=== PATIENT | male | born 1975 | race Two or more races ===

== ENCOUNTER 2018-12-28 21:25 | Emergency (ER) | payer SELFPAY ==
[2018-12-28 22:26] LABS: ABS Basophils 0.1 10^3/ul (0-0.2); ABS Eosinophils 0.4 10^3/ul (0-0.6); ABS Lymphocytes 3.8 10^3/ul (1.0-4.8); ABS Monocytes 0.5 10^3/ul (0-0.8); ABS Neutrophils 3.8 10^3/ul (1.5-7.7); Eosinophil % 4.9 %; Hematocrit 44 % (42-52); Hemoglobin 14.9 g/dL (14.0-18.0); Lymphocyte % 43.7 %; Mean Corpuscular HGB Conc 34 g/dL (31-36); Mean Corpuscular Hemoglobin 31 pg (27-31); Mean Corpuscular Volume 92 fL (80-94); Mean Platelet Volume 7.1 fL (7.4-10.4); Nucleated Red Blood Cells % 0.1; Platelet Count 325 10^3/uL (150-450); Red Blood Count 4.78 10^6 /uL (4.18-5.48); Red Cell Distribution Width 14 % (10-15); White Blood Count 8.6 10^3/uL (3.5-10.8)
[2018-12-28 22:42] LABS: ALT 16 U/L (7-52); AST 20 U/L (13-39); Albumin 4.4 g/dL (3.2-5.2); Albumin/Globulin Ratio 1.8 (1-3); Alkaline Phosphatase 46 U/L (34-104); Anion Gap 11 mmol/L (2-11); Blood Urea Nitrogen 12 mg/dL (6-24); CO2 Carbon Dioxide 20 mmol/L (22-32); Calcium 9.1 mg/dL (8.6-10.3); Chloride 108 mmol/L (101-111); EGFR African American 128.3 (>60); Globulin 2.4 g/dL (2-4); Glucose 75 mg/dL (70-100); Potassium 3.9 mmol/L (3.5-5.0); Sodium 139 mmol/L (135-145); Total Protein 6.8 g/dL (6.4-8.9)
[2018-12-28 22:44] LABS: Urine Benzodiazepine Screen None Detected (None Detect); Urine Opiates Screen None Detected (None Detect)
[2018-12-28 22:46] LABS: Urine Appearance Clear; Urine Bacteria Absent (Absent); Urine Bilirubin Negative (Negative); Urine Blood 2+ (Negative); Urine Color Yellow; Urine Glucose Negative (Negative); Urine Ketones Negative (Negative); Urine Nitrite Negative (Negative); Urine Protein Negative (Negative); Urine Red Blood Cell 1+(3-5/hpf) (Absent); Urine Specific Gravity 1.009 (1.010-1.030); Urine Urobilinogen Negative (Negative); Urine White Blood Cell Absent (Absent)
[2018-12-28 22:47] LABS: Acetaminophen < 15 mcg/mL; Alcohol 70 mg/dL (<10); Salicylate < 2.50 mg/dL (<30)
[2018-12-28 22:56] LABS: TSH (Thyroid Stimulating Horm) 1.72 mcIU/mL (0.34-5.60)
[2018-12-29 01:37] VITALS: BP 131/80
[2018-12-29] MEDS ORDERED: Haloperidol TAB* 5 MG PO ONE (01:55)
--- NOTE | 2018-12-29 03:13 | ED ---
Psychiatric Complaint - HPI Summary HPI Summary: Patient is a 43 y/o M w/ PMHx of schizophrenia who presents to ED with complaints of auditory hallucinations. He reports that he is from [place] and is visiting the [facility]. Patient reports that [place] has been in the [place] for a couple of months and had brought a large amount of his medication with him. However, he ran out of his medication four days ago and has been experiencing Sx since. He states that he hears voices telling him to "do as we say". He states that the voices will laugh at him and make jokes at him. Patient denies SI/HI. Patient claims that the medication he is on can only be found in [place]. On triage, pain is denied, nothing is noted to aggravate/alleviate Sx. Home medications and allergies are reviewed. - History Of Current Complaint Chief Complaint: EDMentalHealth Time Seen by Provider: 12/28/18 21:39 Hx Obtained From: Patient Onset/Duration: Lasting Days - 4, Still Present Timing: Days - 4 Severity Currently: None Aggravating Factor(s): Other - ran out of meds Alleviating Factor(s): Nothing Associated Signs And Symptoms: Positive: Hallucinating - auditory Has Suicidal: Denies: Thoughts Has Homicidal: Denies: Thoughts - Allergies/Home Medications Allergies/Adverse Reactions: Allergies Allergy/AdvReac Type Severity Reaction Status Date / Time No Known Allergies Allergy Verified 12/28/18 21:31 PMH/Surg Hx/FS Hx/Imm Hx Sensory History: Denies: Hx Legally Blind, Hx Deafness Opthamlomology History: Denies: Hx Legally Blind EENT History: Denies: Hx Deafness Psychiatric History: Reports: Hx Schizophrenia Denies: Hx Eating Disorder, Hx of Violent Episodes Against Others Infectious Disease History: No Infectious Disease History: Denies: Traveled Outside the [place] in Last 30 Days - Family History Known Family History: Positive: Other - no FMHx of schizophrenia - Social History Alcohol Use: None Substance Use Type: Reports: None Smoking Status (MU): Heavy Every Day Tobacco Smoker Review of Systems Negative: Fever - on vitals, temp is 99.6 F Psychological: Other - positive - auditory hallucinations; negative - SI/HI All Other Systems Reviewed And Are Negative: Yes Physical Exam - Summary Physical Exam Summary: VITAL SIGNS: Reviewed. GENERAL: Patient is a well-developed and nourished male who is lying comfortable in the stretcher. Patient is not in any acute respiratory distress. HEAD AND FACE: No signs of trauma. No ecchymosis, hematomas or skull depressions. No sinus tenderness. EYES: PERRLA, EOMI x 2, No injected conjunctiva, no nystagmus. EARS: Hearing grossly intact. Ear canals and tympanic membranes are within normal limits. MOUTH: Oropharynx within normal limits. NECK: Supple, trachea is midline, no adenopathy, no JVD, no carotid bruit, no c- spine tenderness, neck with full ROM CHEST: Symmetric, no tenderness at palpation LUNGS: Clear to auscultation bilaterally. No wheezing or crackles. CVS: Regular rate and rhythm, S1 and S2 present, no murmurs or gallops appreciated. ABDOMEN: Soft, non-tender. No signs of distention. No rebound no guarding, and no masses palpated. Bowel sounds are normal. EXTREMITIES: FROM in all major joints, no edema, no cyanosis or clubbing. NEURO: Alert and oriented x 3. No acute neurological deficits. Speech is normal and follows commands. SKIN: Dry and warm Triage Information Reviewed: Yes Vital Signs On Initial Exam: Initial Vitals Temp Pulse Resp BP Pulse Ox 99.6 F 96 20 105/78 99 12/28/18 21:25 12/28/18 21:25 12/28/18 21:25 12/28/18 21:25 12/28/18 21:25 Vital Signs Reviewed: Yes Diagnostics - Vital Signs Vital Signs Temp Pulse Resp BP Pulse Ox 12/29/18 03:00 98.4 F 82 16 131/80 97 12/29/18 01:36 98.4 F 82 16 131/80 97 12/28/18 21:25 99.6 F 96 20 105/78 99 - Laboratory Lab Results: Lab Results 12/28/18 12/28/18 12/28/18 Range/Units 21:46 21:46 22:14 WBC 8.6 (3.5-10.8) 10^3/uL RBC 4.78 (4.18-5.48) 10^6 /uL Hgb 14.9 (14.0-18.0) g/dL Hct 44 (42-52) % MCV 92 (80-94) fL MCH 31 (27-31) pg MCHC 34 (31-36) g/dL RDW 14 (10-15) % Plt Count 325 (150-450) 10^3/uL MPV 7.1 L (7.4-10.4) fL Neut % (Auto) 44.0 % Lymph % (Auto) 43.7 % [place] % (Auto) 6.1 % Eos % (Auto) 4.9 % Baso % (Auto) 1.3 % Absolute Neuts (auto) 3.8 (1.5-7.7) 10^3/ul Absolute Lymphs (auto) 3.8 (1.0-4.8) 10^3/ul Absolute Monos (auto) 0.5 (0-0.8) 10^3/ul Absolute Eos (auto) 0.4 (0-0.6) 10^3/ul Absolute Basos (auto) 0.1 (0-0.2) 10^3/ul Absolute Nucleated RBC 0.0 10^3/ul Nucleated RBC % 0.1 Sodium (135-145) mmol/L Potassium (3.5-5.0) mmol/L Chloride (101-111) mmol/L Carbon Dioxide (22-32) mmol/L Anion Gap (2-11) mmol/L BUN (6-24) mg/dL Creatinine (0.67-1.17) mg/dL Est GFR ( Amer) (>60) Est GFR (Non-Af Amer) (>60) BUN/Creatinine Ratio (8-20) Glucose (70-100) mg/dL Calcium (8.6-10.3) mg/dL Total Bilirubin (0.2-1.0) mg/dL AST (13-39) U/L ALT (7-52) U/L Alkaline Phosphatase (34-104) U/L Total Protein (6.4-8.9) g/dL Albumin (3.2-5.2) g/dL Globulin (2-4) g/dL Albumin/Globulin Ratio (1-3) TSH (0.34-5.60) mcIU/mL Urine Color Yellow Urine Appearance Clear Urine pH 6.0 (5-9) Ur Specific [place] 1.009 L (1.010-1.030) Urine Protein Negative (Negative) Urine Ketones Negative (Negative) Urine Blood 2+ A (Negative) Urine Nitrate Negative (Negative) Urine Bilirubin Negative (Negative) Urine Urobilinogen Negative (Negative) Ur Leukocyte Esterase Negative (Negative) Urine WBC (Auto) Absent (Absent) Urine RBC (Auto) 1+(3-5/hpf) A (Absent) Urine Bacteria Absent (Absent) Urine Glucose Negative (Negative) Salicylates (<30) mg/dL Urine Opiates Screen None detected (None Detect) Acetaminophen mcg/mL Ur Barbiturates Screen None detected (None Detect) Ur Phencyclidine Scrn None detected (None Detect) Ur Amphetamines Screen None detected (None Detect) U Benzodiazepines Scrn None detected (None Detect) Urine Cocaine Screen Presumptive positive A (None Detect) U Cannabinoids Screen None detected (None Detect) Serum Alcohol (<10) mg/dL 12/28/18 Range/Units 22:14 WBC (3.5-10.8) 10^3/uL RBC (4.18-5.48) 10^6 /uL Hgb (14.0-18.0) g/dL Hct (42-52) % MCV (80-94) fL MCH (27-31) pg MCHC (31-36) g/dL RDW (10-15) % Plt Count (150-450) 10^3/uL MPV (7.4-10.4) fL Neut % (Auto) % Lymph % (Auto) % [place] % (Auto) % Eos % (Auto) % Baso % (Auto) % Absolute Neuts (auto) (1.5-7.7) 10^3/ul Absolute Lymphs (auto) (1.0-4.8) 10^3/ul Absolute Monos (auto) (0-0.8) 10^3/ul Absolute Eos (auto) (0-0.6) 10^3/ul Absolute Basos (auto) (0-0.2) 10^3/ul Absolute Nucleated RBC 10^3/ul Nucleated RBC % Sodium 139 (135-145) mmol/L Potassium 3.9 (3.5-5.0) mmol/L Chloride 108 (101-111) mmol/L Carbon Dioxide 20 L (22-32) mmol/L Anion Gap 11 (2-11) mmol/L BUN 12 (6-24) mg/dL Creatinine 0.80 (0.67-1.17) mg/dL Est GFR ( Amer) 128.3 (>60) Est GFR (Non-Af Amer) 106.0 (>60) BUN/Creatinine Ratio 15.0 (8-20) Glucose 75 (70-100) mg/dL Calcium 9.1 (8.6-10.3) mg/dL Total Bilirubin 0.40 (0.2-1.0) mg/dL AST 20 (13-39) U/L ALT 16 (7-52) U/L Alkaline Phosphatase 46 (34-104) U/L Total Protein 6.8 (6.4-8.9) g/dL Albumin 4.4 (3.2-5.2) g/dL Globulin 2.4 (2-4) g/dL Albumin/Globulin Ratio 1.8 (1-3) TSH 1.72 (0.34-5.60) mcIU/mL Urine Color Urine Appearance Urine pH (5-9) Ur Specific [place] (1.010-1.030) Urine Protein (Negative) Urine Ketones (Negative) Urine Blood (Negative) Urine Nitrate (Negative) Urine Bilirubin (Negative) Urine Urobilinogen (Negative) Ur Leukocyte Esterase (Negative) Urine WBC (Auto) (Absent) Urine RBC (Auto) (Absent) Urine Bacteria (Absent) Urine Glucose (Negative) Salicylates < 2.50 (<30) mg/dL Urine Opiates Screen (None Detect) Acetaminophen < 15 mcg/mL Ur Barbiturates Screen (None Detect) Ur Phencyclidine Scrn (None Detect) Ur Amphetamines Screen (None Detect) U Benzodiazepines Scrn (None Detect) Urine Cocaine Screen (None Detect) U Cannabinoids Screen (None Detect) Serum Alcohol 70 H (<10) mg/dL Result Diagrams: 12/28/18 22:14 12/28/18 22:14 Lab Statement: Any lab studies that have been ordered have been reviewed, and results considered in the medical decision making process. Re-Evaluation - Re-Evaluation First Eval Re-Evaluation Time: 23:15 Comment: Patient was medically cleared for MHE. Course/Dx - Course Course Of Treatment: Patient is a 43 y/o M w/ PMHx of schizophrenia who presents to ED with complaints of auditory hallucinations. He reports that he is from [place] and is [place] the [place]. Patient reports that he has been in the [place] for a couple of [place] and had brought a large amount of his medication with him. However, he ran out of his medication four days ago and has been experiencing Sx since. He states that he hears voices telling him to "do as we say". He states that the voices will laugh at him and make jokes at him. Patient denies SI/HI. Patient claims that the medication he is on can only be found in [place]. Labs showd MPV 7.1, carbon dioxide 20. UA showed 2+ blood, 1+ RBC. Urine tox showed presumptive positive cocaine. Serum alcohol 70. Patient was medically cleared for MHE. 0153 - Patient's case had been reviewed by Dr. Pillai, patient will be discharged. Patient was given Haldol 5 mg in ED and prescription for Haldol. - Differential Dx/Clinical Impression Provider Diagnosis: Schizophrenia - Physician Notifications Discussed Care Of Patient With: Marzena Pillai Time Discussed With Above Provider: 01:53 Instructed by Provider To: Other - 0153 - Patient's case had been reviewed by Dr. Pillai, patient will be discharged. Patient was given Haldol 5 mg in ED and prescription for Haldol. Discharge - Sign-Out/Discharge Documenting (check all that apply): Patient Departure - discharge Patient Received Moderate/Deep Sedation with Procedure: No - Discharge Plan Condition: Stable Disposition: HOME Prescriptions: Haloperidol TAB* [Haldol TAB*] 5 mg PO BID #60 tab Referrals: No Primary Care Phys,NOPCP [Primary Care Provider] - - Attestation Statements Document Initiated by Scribe: Yes Documenting Scribe: NYDIA OLSON Provider For Whom [place] is Documenting (Include Credential): BRIELLE GUSTAFSON MD Scribe Attestation: NYDIA Morris, scribed for BRIELLE GUSTAFSON MD on 12/29/18 at 0319. Status of Scribe Document: Ready
== END 2018-12-29 03:00 | disposition home or self-care (01) ==
LOC: ED 21:25
DX: F20.9 Schizophrenia, unspecified (principal); F17.200 Nicotine dependence, unspecified, uncomplicated
CPT/HCPCS: 36415; 80053; 80307; 80320; 80329; 81003; 81015; 84443; 85025; 99283; A9270-GY; G0480

== ENCOUNTER 2019-02-15 22:27 | Inpatient (IN) | payer MEDICAID ==
--- NOTE | 2019-02-15 23:03 | ED ---
Psychiatric Complaint - HPI Summary HPI Summary: This patient is a 43 year old M presenting to [facility] with a chief complaint of suicidal ideation since he ran out of medication. Pt was taking Solian back home in [place]. [place] the [place] get [place]. He reports his symptoms are getting worse; he is very confused, feels suicidal, and feels as if everything is unbearable. - History Of Current Complaint Chief Complaint: EDMentalHealth Time Seen by Provider: 02/15/19 22:59 Hx Obtained From: Patient Onset/Duration: Gradual Onset Timing: Constant Character: Depressed Aggravating Factor(s): Medication Non-compliance Alleviating Factor(s): Nothing Associated Signs And Symptoms: Positive: Confused Related History: Positive For: Prior Psychiatric Issues Has Suicidal: Reports: Thoughts - Allergies/Home Medications Allergies/Adverse Reactions: Allergies Allergy/AdvReac Type Severity Reaction Status Date / Time No Known Allergies Allergy Verified 12/28/18 21:31 PMH/Surg Hx/FS Hx/Imm Hx Sensory History: Denies: Hx Legally Blind, Hx Deafness Opthamlomology History: Denies: Hx Legally Blind Psychiatric History: Reports: Hx Schizophrenia Denies: Hx Eating Disorder, Hx of Violent Episodes Against Others Infectious Disease History: No Infectious Disease History: Denies: Traveled Outside the [place] in Last 30 Days - Family History Known Family History: Positive: Other - no FMHx of schizophrenia - Social History Lives: Alone Alcohol Use: None Substance Use Type: Reports: None Hx Tobacco Use: Yes Smoking Status (MU): Heavy Every Day Tobacco Smoker Review of Systems Negative: Fever Positive: Depressed All Other Systems Reviewed And Are Negative: Yes Physical Exam - Summary Physical Exam Summary: Appearance: Well-appearing, Well-nourished, lying in bed comfortably Skin: Warm, dry, no obvious rash Eyes: sclera anicteric, no conjunctival pallor ENT: mucous membranes moist, pharynx appears normal Neck: Supple, nontender Respiratory: Clear to auscultation, no signs of respiratory distress Cardiovascular: Normal S1, S2. No murmurs. Normal distal pulses in tibial and radial bilaterally. Abdomen: Soft, nontender, normal active bowel sounds present Musculoskeletal: Normal, Strength/ROM Intact Neurological: A&Ox3, awake and alert, mentation is normal, speech is fluent and appropriate Psychiatric: affect is normal, does not appear anxious or depressed Triage Information Reviewed: Yes Vital Signs On Initial Exam: Initial Vitals Temp Pulse Resp BP Pulse Ox 98 F 78 16 112/74 98 02/15/19 22:34 02/15/19 22:34 02/15/19 22:34 02/15/19 22:34 02/15/19 22:34 Vital Signs Reviewed: Yes Diagnostics - Vital Signs Vital Signs Temp Pulse Resp BP Pulse Ox 02/15/19 22:34 98 F 78 16 112/74 98 - Laboratory Result Diagrams: 02/15/19 23:24 02/15/19 23:24 Lab Statement: Any lab studies that have been ordered have been reviewed, and results considered in the medical decision making process. Course/Dx - Course Course Of Treatment: This patient is a 43 year old M presenting to [facility] with a chief complaint of suicidal ideation since he ran out of medication. Pt was taking Solian back home in [place]. He moved to the to get a better job. He reports his symptoms are getting worse; he is very confused, feels suicidal, and feels as if everything is unbearable. Blood work obtained. Hct is 41, MPV is 41, Potassium is 3.4, Glucose is 112, Serum Alcohol is 111. Pt was medically cleared 23:01. At 02:03, Dr. Gallagher would like to admit pt. Admitting Dx is unspecified psychosis. Pt will be admitted. - Differential Dx/Clinical Impression Provider Diagnosis: Unspecified psychosis Discharge ED - Sign-Out/Discharge Documenting (check all that apply): Patient Departure - Admit Patient Received Moderate/Deep Sedation with Procedure: No - Discharge Plan Condition: Stable Disposition: PSYCHIATRIC FACILITY-[facility] - Billing Disposition and Condition Condition: STABLE Disposition: Psychiatric Facility [facility] - Attestation Statements Document Initiated by Scribe: Yes Documenting Scribe: Raiba Jensen Provider For Whom [place] is Documenting (Include Credential): Moi Greene MD Scribe Attestation: Rabia Morris scribed for Moi Greene MD on 02/16/19 at 0518. Scribe Documentation Reviewed: Yes Provider Attestation: The documentation as recorded by the Rabia viera accurately reflects the service I personally performed and the decisions made by me, Moi Greene MD Status of Scribe Document: Viewed
[2019-02-15 23:42] LABS: ABS Basophils 0.1 10^3/ul (0-0.2); ABS Eosinophils 0.7 10^3/ul (0-0.6); ABS Lymphocytes 3.4 10^3/ul (1.0-4.8); ABS Monocytes 0.6 10^3/ul (0-0.8); ABS Neutrophils 5.4 10^3/ul (1.5-7.7); Eosinophil % 6.8 %; Hematocrit 41 % (42-52); Hemoglobin 14.1 g/dL (14.0-18.0); Lymphocyte % 33.4 %; Mean Corpuscular HGB Conc 34 g/dL (31-36); Mean Corpuscular Hemoglobin 31 pg (27-31); Mean Corpuscular Volume 92 fL (80-94); Mean Platelet Volume 7.1 fL (7.4-10.4); Nucleated Red Blood Cells % 0.1; Platelet Count 395 10^3/uL (150-450); Red Cell Distribution Width 15 % (10-15); White Blood Count 10.2 10^3/uL (3.5-10.8)
[2019-02-15 23:51] LABS: ALT 27 U/L (7-52); AST 26 U/L (13-39); Albumin 4.1 g/dL (3.2-5.2); Albumin/Globulin Ratio 1.8 (1-3); Alkaline Phosphatase 65 U/L (34-104); Anion Gap 10 mmol/L (2-11); BUN/Creatinine Ratio 17.9 (8-20); Blood Urea Nitrogen 14 mg/dL (6-24); CO2 Carbon Dioxide 23 mmol/L (22-32); Chloride 109 mmol/L (101-111); EGFR African American 132.1 (>60); EGFR Non-African American 109.2 (>60); Globulin 2.3 g/dL (2-4); Glucose 112 mg/dL (70-100); Potassium 3.4 mmol/L (3.5-5.0); Sodium 142 mmol/L (135-145); Total Protein 6.4 g/dL (6.4-8.9)
[2019-02-16 00:01] LABS: Acetaminophen < 15 mcg/mL; Alcohol 111 mg/dL (<10); Salicylate < 2.50 mg/dL (<30)
[2019-02-16 00:16] LABS: TSH (Thyroid Stimulating Horm) 1.96 mcIU/mL (0.34-5.60)
[2019-02-16 00:23] LABS: Urine Appearance Clear; Urine Bilirubin Negative (Negative); Urine Blood Negative (Negative); Urine Color Yellow; Urine Glucose Negative (Negative); Urine Ketones Negative (Negative); Urine Nitrite Negative (Negative); Urine Protein Negative (Negative); Urine Urobilinogen Negative (Negative)
[2019-02-16 00:38] LABS: Urine Benzodiazepine Screen None Detected (None Detect); Urine Opiates Screen None Detected (None Detect)
[2019-02-16] MEDS ORDERED: Acetaminophen TAB* 325 MG PO PRN (02:28)
[2019-02-16] MEDS ORDERED: Al Hydrox/Mg Hydrox/Simet LIQ* 30 ML UDC PO PRN (02:28)
[2019-02-16] MEDS ORDERED: traZODone TAB* 50 MG TAB PO PRN (02:29)
[2019-02-16] MEDS: Vitamin THERAPEUTIC TAB PO SCH (14:15)
--- NOTE | 2019-02-16 15:05 | HP ---
H&P (Free Text) History and Physical: ID Sarah Self is a 43-year-old single, childless man seeking work after immigrating from [place]. Currently homeless. Reason for admission Reported hearing voices telling him to kill himself, so needed admission for safety, assessment and treatment. Chief complaint CAH to kill self HPI Reports CAH to kill self occurred first with onset of schizophrenia at age 23, and have been occurring off and on since then. Has been hearing them again over the last 3 months since unable to continue amisulpride after leaving [place]: amisulpride is not available in the [facility]. This was following 4 months of remission of psychotic symptoms. Has been getting steadily worse over these last 3 months. Do not occur at any particular time of day, more likely when in a stressful situation. In the past has had VH, not now. Denies any paranoia. Sleep has been so so, slept OK last night without medication. Has also had SI when not hearing voices. Voices say to overdose, and he has thought to overdose apart from voices. Denies hearing or thinking of other methods of suicide. Mood reported as I dont know. Reports he can find enjoyment in life despite voices and suicidal thoughts. Feels very weak as re energy level. Has an appetite, but has lost a lot of weight lately. Reports only hours long episodes of unnaturally good mood. Denies any history of trauma or difficulties with anxiety. Denies any history of eating disorder. ROS and PE Negative ROS. Reports he had a negative ROS aside and an entirely normal PE aside from psychiatric concerns in the ED. Past psychiatric history - Hospitalized at 23 with onset of psychotic illness. Reports one other psychiatric hospitalization about 10 years ago. Last outpatient care was about 4 months ago, while still in [place]. Has not established care here in the [facility] yet. Denies ever making a suicide attempt. Legal history None. Substance abuse history Denies any alcohol use or use of any illicit substances. Smokes about 2 tobacco cigarettes daily. Current medications None, but had been on only amisulpride 3-4 months ago. Past psychiatric medication trials - Denies any other than Solian/amisulpride Pharmacy None yet. Past medical history Denies any. PCP None Family psychiatric history Unsure of any, but suspicion raised by report of previous psychiatric care provider who told him chronic psychotic illness can run in families. Social history - Born in [facility]. No developmental delays. Youngest of sibship of 3, with older brother and older sister. Has lost touch with them, as they have moved to other countries. Remembers childhood as so so . Denies any neglect or abuse. Reports so so school performance. Parents are , both about 5 or 6 years ago. 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 Came to [place], only for the job. Hard to find work in [place]. Finds the [place] so far, so good. Reports having no friends or family he could turn to in a crisis. Mental Status Examination - Adequate grooming and hygiene, appropriately dressed. Good eye contact. Cooperative and collaborative attitude. Linear and goal-directed thought process. Normal motor and speech patterns. Mood good with flat affect. Denies VH/PI/HI. Reports having AH/SI on and off even as we speak. Fair insight/judgment. Good impulse control. Impression - Adil reports a 20 year history of treatment for schizophrenia, with psychiatric hospitalizations 20 and 10 years ago. He reports relapse to active psychosis with prominent CAH telling him to kill himself by overdose. He denies any history of suicide attempt, and reports he feels safe on the unit , with continued SI but no intent to act on it, and without PI or HI. He reports having only taken Solian/amisulpride, which has not won FDA approval so is not available in the [place]. 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 He came to [place], [place] on advice of others, but reports he has no one to turn to in a crisis, neither family nor friends. Diagnoses - Schizophrenia Plan He has been admitted for safety, assessment and treatment given his report of CAH to kill himself by overdose. We will encourage him to make use of the therapeutic milieu and groups. We will start olanzapine 15 mg at HS with 5 mg available daily as needed for agitation or psychosis. Has nicotine gum available for cravings, trazodone available for insomnia if olanzapine insufficient. We will attempt to gather collateral, but early indications are that this may be limited. Aftercare to be determined per hospital course, with referral per determination of where he plans to live when he leaves the hospital.
[2019-02-16] MEDS ORDERED: OLANzapine TAB* 5 MG PO PRN (15:07)
[2019-02-16] MEDS: Nicotine* 2MG (FRUIT FLAVOR) GUM PO PRN (16:44)
[2019-02-16] MEDS: OLANzapine TAB* 5 MG PO SCH (21:23)
[2019-02-17] MEDS: Nicotine* 2MG (FRUIT FLAVOR) GUM PO PRN ×4 (08:36→18:49)
[2019-02-17] MEDS: Vitamin THERAPEUTIC TAB PO SCH (08:37)
[2019-02-17 08:42] LABS: HDL Cholesterol 81.3 mg/dL
[2019-02-17] MEDS ORDERED: hydrOXYzine HCL TAB* 50 MG PO PRN (11:18)
--- NOTE | 2019-02-17 11:23 | PN ---
Subjective - Subjective Date of Service: 02/17/19 Service Type: 87532 Hosp care 25 min moderate complexity Subjective: Patient is pleasant upon approach, cooperative with interview. He reports constant worry about finding a job and being homeless. He endorses uses alcohol and marijuana to "cope with stress" but denies problematic use. He reports mild improvement in AH. He reports AH are command in nature and tell him to kill himself. He also endorses fleeting suicidal ideation. He reports relief due to being in hospital. Objective - General Observations Appearance: Well Groomed Stature: Thin Posture: WNL Eye Contact: Average Behavior/Activity: WNL - Interaction Observations Attitude Towards Examiner: Cooperative, Anxious Stated Mood: Anxious Affect: Restricted Speech Pattern/Tone: Clear, Appropriate, Normal Volume Thought Process: Circumstantial, Racing Perception: WNL Thought Content: Preoccupation/Ruminations, Depressive Thought Process: Lethality: Passive Wish Hallucination Type: Auditory Delusion Type: None - Cognitive Function Orientation: A&O x 4 Level of Consciousness: Alert Cognition: WNL Estimated Intelligence: Normal Insight: WNL Judgment Within Normal Limits: No Ability to Make Reasonable Decisions: Moderately Impaired - Medication Compliance Cooperative with Inpatient Medication Regimen: Yes - Group Participation Participates in Group Activities: Partial Assessment - Assessment Merits Inpatient Hospitalization: For Immediate Safety, For Stabilization Inpatient DSM-V Dx: F20.9 Clinical Impression: 21yo morro[place] male, single, childless, undomiciled and unemployed with reported history of schizophrenia and no current healthcare. He reports having only taken Solian[place]ulpr[place] and has been without since [place] to [place] approx four months ago. He presented to ED with command hallucinations telling him to kill himself. He merits hospitalization for immediate safety and stabilization. Plan - Plan Treatment Plan: Name: VLAD MATTHEW Birthdate: 1975 [id number] continue acute intensive psychiatric treatment. continue scheduled and prn olanzapine. add hydroxyzine 50mg prn anxiety. Continued Medication Management: Start Medication Medications: Current Medications Acetaminophen (Tylenol Tab*) 650 mg PO Q4H PRN PRN Reason: PAIN or TEMP > 101 F Al Hydrox/Mg Hydrox/Simethicone (Maalox Plus*) 30 ml PO Q4H PRN PRN Reason: INDIGESTION Multivitamins (Theragran Tab*) 1 tab PO DAILY MIRTHA Last Admin: 02/17/19 08:37 Dose: Not Given Nicotine Polacrilex (Nicotine Gum*) 2 mg PO Q2H PRN PRN Reason: CRAVINGS Last Admin: 02/17/19 11:02 Dose: 2 mg Olanzapine (Zyprexa Tab*) 15 mg PO BEDTIME MIRTHA Last Admin: 02/16/19 21:23 Dose: 15 mg Olanzapine (Zyprexa Tab*) 5 mg PO DAILY PRN PRN Reason: agitation/psychosis Stop: 03/03/19 15:06 Last Admin: 02/16/19 16:43 Dose: 5 mg Trazodone HCl (Desyrel Tab*) 50 mg PO BEDTIME PRN PRN Reason: INSOMNIA - Discharge Plan Discharge Plan: Inpatient Hospitalization
[2019-02-17] MEDS: OLANzapine TAB* 5 MG PO SCH (20:05)
[2019-02-17] MEDS ORDERED: Albuterol HFA INHALER* 8 gm MDI INH PRN (20:50)
[2019-02-18] MEDS: Nicotine* 2MG (FRUIT FLAVOR) GUM PO PRN ×4 (08:07→17:38)
[2019-02-18] MEDS: Vitamin THERAPEUTIC TAB PO SCH ×2 (08:20→10:57)
--- NOTE | 2019-02-18 15:35 | PN ---
Subjective - Subjective Date of Service: 02/18/19 Service Type: 02187 Hosp care 15 min low complexity Subjective: Patient reports improved AH with mild running commentary. He reports good effect wtih current medication and denies sedation or somnolence. He reports history of taking haloperidol with poor efficacy and risperidone causing drowsiness. He is receptive to long acting injectable. Due to history of risperidone, will receive initial Invega booster today. Patient met with healthcare insurance navigator this morning. Objective - General Observations Appearance: Well Groomed Stature: Thin, Tall Posture: WNL Eye Contact: Average Behavior/Activity: WNL - Interaction Observations Attitude Towards Examiner: Cooperative Stated Mood: Euthymic, Anxious Affect: Restricted Speech Pattern/Tone: Clear, Appropriate, Normal Volume Thought Process: Coherent Perception: WNL Thought Content: Depressive, Paranoid Thought Process: Lethality: Paranoid Ideation Hallucination Type: Auditory Delusion Type: None - Cognitive Function Orientation: A&O x 4 Level of Consciousness: Alert Cognition: WNL Estimated Intelligence: Normal Insight: WNL Judgment Within Normal Limits: Yes Ability to Make Reasonable Decisions: Mildly Impaired - Medication Compliance Cooperative with Inpatient Medication Regimen: Yes - Group Participation Participates in Group Activities: Partial Assessment - Assessment Merits Inpatient Hospitalization: For Immediate Safety, For Stabilization Inpatient DSM-V Dx: F20.9 Clinical Impression: 21yo morro[place] male, single, childless, undomiciled and unemployed with reported history of schizophrenia and no current healthcare. He reports having [place] and has been without [place] appro[place] four months ago. He presented to ED with command hallucinations telling him to kill himself. He merits hospitalization for immediate safety and stabilization. Plan - Plan Treatment Plan: Name: VLAD MATTHEW Birthdate: 1975 [id number] continue acute intensive psychiatric treatment. may decrease to q30min and allow staff pass. start invega sustenna, give first booster of 234mg IM today. continue hydroxyzine prn anxiety. discharge to include referral to [facility] for outpatient mental health services and [facility] for [facility] options Continued Medication Management: Start Medication Medications: Current Medications Acetaminophen (Tylenol Tab*) 650 mg PO Q4H PRN PRN Reason: PAIN or TEMP > 101 F Al Hydrox/Mg Hydrox/Simethicone (Maalox Plus*) 30 ml PO Q4H PRN PRN Reason: INDIGESTION Albuterol (Ventolin Hfa Inhaler*) 1 puff INH Q4H PRN PRN Reason: SHORTNESS OF BREATH Hydroxyzine HCl (Atarax Tab*) 50 mg PO Q6H PRN PRN Reason: anxiety Multivitamins (Theragran Tab*) 1 tab PO DAILY [facility] Last Admin: 02/18/19 10:57 Dose: 1 tab Nicotine Polacrilex (Nicotine Gum*) 2 mg PO Q2H PRN PRN Reason: CRAVINGS Last Admin: 02/18/19 13:55 Dose: 2 mg Olanzapine (Zyprexa Tab*) 15 mg PO BEDTIME [facility] Last Admin: 02/17/19 20:05 Dose: 15 mg Olanzapine (Zyprexa Tab*) 5 mg PO DAILY PRN PRN Reason: agitation/psychosis Stop: 03/03/19 15:06 Last Admin: 02/16/19 16:43 Dose: 5 mg Trazodone HCl (Desyrel Tab*) 50 mg PO BEDTIME PRN PRN Reason: INSOMNIA - Discharge Plan Discharge Plan: Inpatient Hospitalization
[2019-02-18] MEDS ORDERED: Paliperidone SUSTENNA* 234 MG/1.5 ML IM ONE (16:25)
[2019-02-19] MEDS: Vitamin THERAPEUTIC TAB PO SCH (08:09)
[2019-02-19] MEDS: Nicotine* 2MG (FRUIT FLAVOR) GUM PO PRN ×4 (08:09→17:34)
[2019-02-19] MEDS: Nicotine PATCH 14 MG/24 HR* PATCH TRANSDERM SCH (12:42)
--- NOTE | 2019-02-19 14:18 | PN ---
Subjective - Subjective Date of Service: 02/19/19 Service Type: 05795 Hosp care 15 min low complexity Subjective: Sarah received first booster of Invega Sustenna 234mg last evening. He denies untoward effects, other than pain at site. He reports he hears "voices but they are calming down." He denies problems with sleep or mood. He is agreeable to remain hospitalized until receiving second booster. Per staff, he has been participating in programming, pleasant and in behavioral control. Objective - General Observations Appearance: Well Groomed Stature: Thin, Tall Posture: WNL Eye Contact: Average Behavior/Activity: WNL - Interaction Observations Attitude Towards Examiner: Cooperative, Anxious Stated Mood: Euthymic Affect: Full Speech Pattern/Tone: Clear, Appropriate, Normal Volume Thought Process: Coherent, [place] Perception: WNL Thought Content: Paranoid Thought Process: Lethality: Paranoid Ideation Hallucination Type: None Delusion Type: None - Cognitive Function Orientation: A&O x 4 Level of Consciousness: Alert Cognition: Impaired Attention/Concentration Estimated Intelligence: Normal Insight: WNL Judgment Within Normal Limits: No Ability to Make Reasonable Decisions: Moderately Impaired - Medication Compliance Cooperative with Inpatient Medication Regimen: Yes - Group Participation Participates in Group Activities: Yes Assessment - Assessment Merits Inpatient Hospitalization: For Immediate Safety, For Stabilization Inpatient DSM-V Dx: F20.9 Clinical Impression: 21yo morrocan male, single, childless, undomiciled and unemployed with reported history of schizophrenia and no current healthcare. He reports having [place] Solian[place] and has been without since [place] to [place] appro[place] four months ago. He presented to ED with command hallucinations telling him to kill himself. He merits hospitalization for immediate safety and stabilization. Plan - Plan Treatment Plan: Name: SARAH MATTHEW Birthdate: 1975 [id number] continue acute intensive psychiatric treatment. may decrease to q30min and allow staff pass. start invega sustenna, give first booster of 234mg IM today. continue hydroxyzine prn anxiety. discharge to include referral to [facility] for outpatient mental health services and [facility] for housing options Continued Medication Management: Start Medication Medications: Current Medications Acetaminophen (Tylenol Tab*) 650 mg PO Q4H PRN PRN Reason: PAIN or TEMP > 101 F Al Hydrox/Mg Hydrox/Simethicone (Maalox Plus*) 30 ml PO Q4H PRN PRN Reason: INDIGESTION Albuterol (Ventolin Hfa Inhaler*) 1 puff INH Q4H PRN PRN Reason: SHORTNESS OF BREATH Hydroxyzine HCl (Atarax Tab*) 50 mg PO Q6H PRN PRN Reason: anxiety Multivitamins (Theragran Tab*) 1 tab PO DAILY [facility] Last Admin: 02/19/19 08:09 Dose: 1 tab Nicotine (Nicotine Patch 14 Mg/24 Hr*) 1 patch TRANSDERM DAILY [facility] Last Admin: 02/19/19 12:42 Dose: Not Given Nicotine Polacrilex (Nicotine Gum*) 2 mg PO Q2H PRN PRN Reason: CRAVINGS Last Admin: 02/19/19 13:54 Dose: 2 mg Olanzapine (Zyprexa Tab*) 5 mg PO DAILY PRN PRN Reason: agitation/psychosis Stop: 03/03/19 15:06 Last Admin: 02/16/19 16:43 Dose: 5 mg Pharmacy Profile Note (Nicotine Patch Removal Note*) 1 note FOLLOW UP 2099 [facility] Trazodone HCl (Desyrel Tab*) 50 mg PO BEDTIME PRN PRN Reason: INSOMNIA - Discharge Plan Discharge Plan: Inpatient Hospitalization
--- NOTE | 2019-02-19 16:37 | PN ---
BSU: Group Therapy Note - Service Type Service Type: [id number] Group Psychotherapy - Medication Education Group: Patient was attentive and participatory in group, and remained in good behavioral control. Patient expressed positive insights regarding relevant treatment interventions. Patient stated understanding of material discussed and had appropriate questions.
[2019-02-19] MEDS: Nicotine Patch Removal NOTE FOLLOW UP SCH (19:41)
[2019-02-20] MEDS: Nicotine* 2MG (FRUIT FLAVOR) GUM PO PRN ×3 (08:21→15:22)
[2019-02-20] MEDS: Vitamin THERAPEUTIC TAB PO SCH (08:21)
[2019-02-20] MEDS: Nicotine PATCH 14 MG/24 HR* PATCH TRANSDERM SCH ×2 (10:07→11:00)
--- NOTE | 2019-02-20 11:31 | PN ---
BSU: Group Therapy Note - Service Type Service Type: [id number] Group Psychotherapy - Cognitive Behavioral Group Therapy ( CBT):Patient was attentive and participatory in CBT programming this morning, and remained in good behavioral control. Patient expressed positive insights regarding relevant treatment interventions and goals.
--- NOTE | 2019-02-20 14:22 | PN ---
Subjective - Subjective Date of Service: 02/20/19 Service Type: 40795 Hosp care 15 min low complexity Subjective: Patient reports resolution of auditory hallucinations. He is pleasant and interactive upon approach. He in present in milieu and groups, is not noted to spontaneously interact with staff or peers. He continue to endorse agreement with treatment plan. Objective - General Observations Appearance: Well Groomed Stature: Thin, Tall Posture: WNL Eye Contact: Average Behavior/Activity: WNL - Interaction Observations Attitude Towards Examiner: Cooperative Stated Mood: Euthymic Affect: Bright Speech Pattern/Tone: Clear, Appropriate, Normal Volume Thought Process: Coherent, Goal Directed Perception: WNL Thought Content: WNL Hallucination Type: Denies Delusion Type: Denies - Cognitive Function Orientation: A&O x 4 Level of Consciousness: Alert Cognition: WNL Estimated Intelligence: Normal Insight: WNL Judgment Within Normal Limits: Yes Ability to Make Reasonable Decisions: Mildly Impaired - Medication Compliance Cooperative with Inpatient Medication Regimen: Yes - Group Participation Participates in Group Activities: Yes Assessment - Assessment Merits Inpatient Hospitalization: For Immediate Safety, For Stabilization Inpatient DSM-V Dx: F20.9 Clinical Impression: 21yo morrocan male, single, childless, undomiciled and unemployed with reported history of schizophrenia and no current healthcare. He reports having [place] and has been without [place] appro[place] ago. He presented to ED with command hallucinations telling him to kill himself. He merits hospitalization for immediate safety and stabilization. Plan - Plan Treatment Plan: Name: VLAD MATTHEW Birthdate: 1975 [id number] continue acute intensive psychiatric treatment. may decrease to q30min and allow staff pass. start invega sustenna, give first booster of 234mg IM today. continue hydroxyzine prn anxiety. discharge to include referral to [facility] for outpatient mental health services and [facility] for housing options Continued Medication Management: Start Medication Medications: Current Medications Acetaminophen (Tylenol Tab*) 650 mg PO Q4H PRN PRN Reason: PAIN or TEMP > 101 F Al Hydrox/Mg Hydrox/Simethicone (Maalox Plus*) 30 ml PO Q4H PRN PRN Reason: INDIGESTION Albuterol (Ventolin Hfa Inhaler*) 1 puff INH Q4H PRN PRN Reason: SHORTNESS OF BREATH Hydroxyzine HCl (Atarax Tab*) 50 mg PO Q6H PRN PRN Reason: anxiety Multivitamins (Theragran Tab*) 1 tab PO DAILY [facility] Last Admin: 02/20/19 08:21 Dose: 1 tab Nicotine (Nicotine Patch 14 Mg/24 Hr*) 1 patch TRANSDERM DAILY [facility] Last Admin: 02/20/19 11:00 Dose: 1 patch Nicotine Polacrilex (Nicotine Gum*) 2 mg PO Q2H PRN PRN Reason: CRAVINGS Last Admin: 02/20/19 11:00 Dose: 2 mg Olanzapine (Zyprexa Tab*) 5 mg PO DAILY PRN PRN Reason: agitation/psychosis Stop: 03/03/19 15:06 Last Admin: 02/16/19 16:43 Dose: 5 mg Pharmacy Profile Note (Nicotine Patch Removal Note*) 1 note FOLLOW UP 2100 [facility] Last Admin: 02/19/19 19:41 Dose: Not Given Trazodone HCl (Desyrel Tab*) 50 mg PO BEDTIME PRN PRN Reason: INSOMNIA - Discharge Plan Discharge Plan: Inpatient Hospitalization
[2019-02-20] MEDS: Nicotine Patch Removal NOTE FOLLOW UP SCH (20:38)
[2019-02-21] MEDS: Nicotine PATCH 14 MG/24 HR* PATCH TRANSDERM SCH (08:44)
[2019-02-21] MEDS: Vitamin THERAPEUTIC TAB PO SCH (08:45)
--- NOTE | 2019-02-21 08:45 | PN ---
Subjective - Subjective Date of Service: 02/20/19 Service Type: 77700 Hosp care 15 min low complexity Subjective: Patient reports improved sedation and denies auditory hallucinations. He met with interpretative dancer who assisted him with identifying islamic resources in the community. Objective - General Observations Appearance: Well Groomed Stature: Thin, Tall Posture: WNL Eye Contact: Average Behavior/Activity: WNL - Interaction Observations Attitude Towards Examiner: Cooperative Stated Mood: Euthymic Affect: Full Speech Pattern/Tone: Clear, Appropriate, Normal Volume Thought Process: Coherent, Goal Directed Perception: WNL Thought Content: WNL Hallucination Type: Denies Delusion Type: Denies - Cognitive Function Orientation: A&O x 4 Level of Consciousness: Alert Cognition: WNL Estimated Intelligence: Normal Insight: WNL Judgment Within Normal Limits: Yes - Medication Compliance Cooperative with Inpatient Medication Regimen: Yes - Group Participation Participates in Group Activities: Yes Assessment - Assessment Merits Inpatient Hospitalization: For Immediate Safety, For Stabilization Inpatient DSM-V Dx: F20.9 Clinical Impression: 21yo morro[place] male, single, childless, undomiciled and unemployed with reported history of schizophrenia and no current healthcare. He reports having [place] and has been without [place] ago. He presented to ED with command hallucinations telling him to kill himself. He merits hospitalization for immediate safety and stabilization. Plan - Plan Treatment Plan: Name: VLAD MATTHEW Birthdate: 1975 [id number] continue acute intensive psychiatric treatment. may decrease to q30min and allow staff pass. start invega sustenna, give first booster of 234mg IM today. continue hydroxyzine prn anxiety. discharge to include referral to [facility] for outpatient mental health services and [facility] for housing options Continued Medication Management: Start Medication Medications: Current Medications Acetaminophen (Tylenol Tab*) 650 mg PO Q4H PRN PRN Reason: PAIN or TEMP > 101 F Last Admin: 02/20/19 19:50 Dose: 650 mg Al Hydrox/Mg Hydrox/Simethicone (Maalox Plus*) 30 ml PO Q4H PRN PRN Reason: INDIGESTION Albuterol (Ventolin Hfa Inhaler*) 1 puff INH Q4H PRN PRN Reason: SHORTNESS OF BREATH Hydroxyzine HCl (Atarax Tab*) 50 mg PO Q6H PRN PRN Reason: anxiety Multivitamins (Theragran Tab*) 1 tab PO DAILY [facility] Last Admin: 02/20/19 08:21 Dose: 1 tab Nicotine (Nicotine Patch 14 Mg/24 Hr*) 1 patch TRANSDERM DAILY [facility] Last Admin: 02/20/19 11:00 Dose: 1 patch Nicotine Polacrilex (Nicotine Gum*) 2 mg PO Q2H PRN PRN Reason: CRAVINGS Last Admin: 02/20/19 15:22 Dose: 2 mg Olanzapine (Zyprexa Tab*) 5 mg PO DAILY PRN PRN Reason: agitation/psychosis Stop: 03/03/19 15:06 Last Admin: 02/16/19 16:43 Dose: 5 mg Pharmacy Profile Note (Nicotine Patch Removal Note*) 1 note FOLLOW UP 2100 [facility] Last Admin: 02/20/19 20:38 Dose: 1 note Trazodone HCl (Desyrel Tab*) 50 mg PO BEDTIME PRN PRN Reason: INSOMNIA - Discharge Plan Discharge Plan: Inpatient Hospitalization
[2019-02-21 09:33] VITALS: BP 116/63
[2019-02-21] MEDS ORDERED: Paliperidone SUSTENNA* 156 MG/1 ML IM ONE (10:03)
--- NOTE | 2019-02-21 10:25 | DCNOTE ---
Subjective - Subjective Service Types: [id number] Hosp DC Day Mgmt complex over 30 min Discharge Date: 02/21/19 Subjective: Patient has been safe and in behavioral control. He denies SI or AH. He has received the second booster of Invega Sustenna. He agrees to follow up with [facility]. He was given information about [place] resources and DSS for housing. Objective - General Observations Appearance: Well Groomed Stature: Thin, Tall Posture: WNL Eye Contact: Average Behavior/Activity: WNL - Interaction Observations Attitude Towards Examiner: Cooperative Stated Mood: Euthymic Affect: Bright Speech Pattern/Tone: Clear, Appropriate, Normal Volume Thought Process: Coherent, Goal Directed Perception: WNL Thought Content: WNL Hallucination Type: Denies Delusion Type: Denies - Cognitive Function Orientation: A&O x 4 Level of Consciousness: Alert Cognition: WNL Estimated Intelligence: Normal Insight: WNL Judgment Within Normal Limits: Yes - Medication Compliance Cooperative with Inpatient Medication Regimen: Yes - Group Participation Participates in Group Activities: Yes DC Assessment - Assessment Clinical Impression: 21yo morro[place] male, single, childless, undomiciled and unemployed with reported history of schizophrenia and no current healthcare. He reports having [place] and has been without [place] ago. He presented to ED with command hallucinations telling him to kill himself. He has accepted and received the first two boosters of Invega Sustenna and stabilized in this setting. Merits Inpatient Hospitalization: No Clear for Discharge: Adequate Clinical Respons, Acceptable Safety Profile Inpatient DSM-V Dx: F20.9 Discharge Planning - Discharge Planning Discharge Plan: Outpatient Follow Up Outpatient Program: [facility] Recommendations for Continuing Care: Medication Management, Psychotherapy, Routine Metabolic Monitoring, Primary Care Followup Medications: Current Medications Albuterol (Ventolin Hfa Inhaler*) 1 puff INH Q4H PRN PRN Reason: SHORTNESS OF BREATH Hydroxyzine HCl (Atarax Tab*) 50 mg PO Q6H PRN PRN Reason: anxiety Paliperidone Palmitate (Invega Sustenna*) First booster of 234mg IM received on 02/18/19 Second booster of 156mg IM received on 02/21/19. Due for maintenance dose by 03/21/19 Trazodone HCl (Desyrel Tab*) 50 mg PO BEDTIME PRN PRN Reason: INSOMNIA Discharge Planning: Prescriptions provided for discharge [] Yes [] No Follow up care details as per social work arrangements. Patient response to discharge plan: [] eager for discharge [] agreeable with discharge plan [] ambivalent about discharge [] disagrees with discharge today
--- NOTE | 2019-02-21 11:41 | PN ---
BSU: Group Therapy Note - Service Type Service Type: [id number] Group Psychotherapy - Cognitive Behavioral Group Therapy ( CBT):Patient was attentive and participatory in CBT programming this morning, and remained in good behavioral control. Patient expressed positive insights regarding relevant treatment interventions and goals.
--- NOTE | 2019-02-24 23:26 | DS ---
CC: [facility] * DISCHARGE SUMMARY: DATE OF ADMISSION: 02/16/19 DATE OF DISCHARGE: 02/21/19 SUPERVISING PSYCHIATRIST: Dr. Arnoldo Kingsley.* (DICTATED BY TALIA GARY NP) DISCHARGE DIAGNOSIS: Schizophrenia. CONDITION AT THE TIME OF DISCHARGE: Improved. The patient is euthymic and well related. He reports resolution of hallucinations. He denies suicidal ideation. He received the second booster of Invega Sustenna. On day of discharge, he agrees to follow up with [facility]. He was given information about [facility] and DSS for housing. He received his first booster of Invega Sustenna 234 mg on 02/18/19 and the second booster of 156 mg IM on 02/21/19. He is due for his maintenance dose by . The patient is discharged to home. MENTAL STATUS EXAM: Sarah is a well groomed, tall, thin man with erect posture and good eye contact. He is cooperative and in behavioral control. He reports his mood as "good." His affect is bright. Speech is clear and spontaneous with normal volume. Thought process coherent and goal and directed. Thought content is negative for suicidal ideation, HI or . He denies auditory or visual hallucinations. There are no perceptual disturbances noted. The patient is alert and oriented x3. Concentration is good. Memory is 3/3. Insight and judgment are fair, improved. Fund of knowledge is adequate. INSTRUCTIONS GIVEN TO THE PATIENT: A. Medications: As stated above, he is due for his Invega Sustenna maintenance dose by 03/21/19. He can resume albuterol inhaler 1 puff inhale q.4 hours p.r.n. SOB and hydroxyzine 50 mg p.o. q.6 hours p.r.n. anxiety. B. Diet: Regular. C. Activity: Ambulation as tolerated. Tobacco cessation was declined by the patient. There are no pending labs. D. Followup care: The patient will follow up with [facility] and has an intake on 02/26/19 and was given information for the [facility] physician referral line for primary care. E. Substance abuse followup: Not applicable HOSPITAL COURSE: Part A: Reason for Admission: The patient presented to the emergency department due to command hallucinations telling him to kill himself. He reports a history of the symptom since the first onset of schizophrenia at age 23. He had been hearing them over the last 3 months and since unable to continue Amisulpride after leaving [place]. Amisulpride is not available in the [place]. The patient reports he had remission of psychotic symptoms that was getting suddenly worse over the last 3 months. The patient has been trying to immigrate to the [place] from [place]. He was in [facility] and told that [place] had good job and mental healthcare opportunities. Part B: Psychiatric Treatment Rendered: The patient was admitted to adult behavioral services unit. He was calm and in behavioral control. He was initially placed on 15 minute observation. He was started on olanzapine 15 mg at bedtime, which he tolerated well. We discussed the use of a long-acting injectable to which the patient was agreeable. He reported a history of use with risperidone with no untoward effects other than sedation. We trailed halopredone with good effect. He was agreeable to remain hospitalized in order to receive both booster injections of Invega. He was pleasant and in behavioral control as stated above. He was increased to 30 minute observation and allowed staff pass. There were other peers on the unit that were volatile and he did not engage in interactions and primarily kept to himself. He was thankful for services rendered. He met with a mat weaver who assisted him with identifying Islamic resources in the community. The patient continues to be in need of delinquency prevention social worker. He reports being knowledgeable about how to obtain these. He reported readiness for discharge on day of discharge. TALIA GARY NP [id number]/CPS #: [id number] [place]
== END 2019-02-21 12:20 | disposition home or self-care (01) | DRG 885 ==
LOC: ED 22:27 → BSU 02-16 02:03
PROVIDERS: ADMIT Psychiatry & Neurology Psychiatry; ATTEND Psychiatry & Neurology Psychiatry
PROC: GZHZZZZ Group Psychotherapy (ICD-10-PCS; principal; 2019-02-19)
DX: F20.9 Schizophrenia, unspecified (principal); R45.851 Suicidal ideations; F17.210 Nicotine dependence, cigarettes, uncomplicated; F41.9 Anxiety disorder, unspecified; Z56.0 Unemployment, unspecified
CPT/HCPCS: 36415; 80053; 80061; 80307; 80320; 80329; 81003; 83036; 84443; 85025; 90853; 99222; 99231; 99232; 99238; 99284; A9270-GY; G0480; J2426

== ENCOUNTER 2019-02-21 18:47 | Emergency (ER) | payer MEDICAID ==
[2019-02-21 20:08] LABS: ABS Basophils 0.1 10^3/ul (0-0.2); ABS Eosinophils 0.4 10^3/ul (0-0.6); ABS Lymphocytes 2.1 10^3/ul (1.0-4.8); ABS Monocytes 0.6 10^3/ul (0-0.8); Eosinophil % 5.9 %; Hematocrit 38 % (42-52); Hemoglobin 13.1 g/dL (14.0-18.0); Lymphocyte % 28.7 %; Mean Corpuscular HGB Conc 35 g/dL (31-36); Mean Corpuscular Hemoglobin 32 pg (27-31); Mean Corpuscular Volume 92 fL (80-94); Mean Platelet Volume 7.2 fL (7.4-10.4); Platelet Count 312 10^3/uL (150-450); Red Blood Count 4.11 10^6 /uL (4.18-5.48); Red Cell Distribution Width 15 % (10-15); White Blood Count 7.3 10^3/uL (3.5-10.8)
--- NOTE | 2019-02-21 20:13 | ED ---
Psychiatric Complaint - HPI Summary HPI Summary: This pt is a 43 Y/O M presenting to [facility] with a CC of manic and suicidal thoughts that occurred OPTICAL ADVISOR today. He states that he has Schizophrenia and was discharged from [facility] today. He has no bed at a nearby fpc and was told to return on Sunday02/24/19. He [place] sleeping in the park when he states that he became manic and suicidal and decided to return to [facility] after the medications that he was given did not help. He states that he currently has a headache. He denies any fever, chills, N/V, SOB, and sore throat. He also denies any HI. He states that he smokes 2 cigarettes per day. He states no aggravating or alleviating symptoms. He didnt elaborate on his family history. Home Medications Medication Instructions Recorded Confirmed Type Albuterol HFA INHALER* [Ventolin 1 puff INH Q4H PRN #1 mdi 02/21/19 02/21/19 Rx HFA Inhaler*] hydrOXYzine HCL TAB* [Atarax 25 MG 50 mg PO TID PRN #84 tab 02/21/19 02/21/19 Rx TAB*] traZODone TAB* [Desyrel TAB*] 50 mg PO BEDTIME PRN #14 tab 02/21/19 02/21/19 Rx - History Of Current Complaint Chief Complaint: EDSuicidal Time Seen by Provider: 02/21/19 19:08 Hx Obtained From: Patient Onset/Duration: Sudden Onset, Still Present Timing: Constant Severity Initially: Severe Severity Currently: Severe Character: Manic Aggravating Factor(s): Nothing Alleviating Factor(s): Nothing Related History: Positive For: Prior Psychiatric Issues - Schizophrenia Has Suicidal: Reports: Thoughts Has Homicidal: Denies: Thoughts, With A Plan - Allergies/Home Medications Allergies/Adverse Reactions: Allergies Allergy/AdvReac Type Severity Reaction Status Date / Time No Known Allergies Allergy Verified 12/28/18 21:31 PMH/Surg Hx/FS Hx/Imm Hx Previously Healthy: Yes Endocrine/Hematology History: Denies: Hx Diabetes Respiratory History: Denies: Hx Asthma Sensory History: Denies: Hx Contacts or Glasses, Hx Legally Blind, Hx Deafness, Hx Hearing Aid Opthamlomology History: Denies: Hx Contacts or Glasses, Hx Legally Blind Psychiatric History: Reports: Hx Schizophrenia Denies: Hx Eating Disorder, Hx of Violent Episodes Against Others - Surgical History Surgical History: None Infectious Disease History: No Infectious Disease History: Denies: Traveled Outside the [place] in Last 30 Days - Family History Known Family History: Positive: Other - no FMHx of schizophrenia - Social History Alcohol Use: Occasionally Hx Substance Use: No Substance Use Type: Reports: None Hx Tobacco Use: Yes Smoking Status (MU): Light Every Day Tobacco Smoker Amount Used/How Often: 2 cigs per day Review of Systems Negative: Fever, Chills Negative: Sore Throat Negative: Shortness Of Breath Negative: Vomiting, Nausea Positive: Headache Psychological: Other - suicidal, manic: per pt All Other Systems Reviewed And Are Negative: Yes Physical Exam - Summary Physical Exam Summary: General: Well-developed, Well-nourished male. No acute distress. HEENT: Normocephalic, Atraumatic. Eyes: Conjuctiva normal, PERRL. Ears: TMs within normal limits. Nares: (-) discharge, (-) erythema. Oropharynx: Clear, mucous membranes moist, (-) exudates. Neck: Soft, FROM, (-) lymphadenopathy, (-) thyromegaly, (-) JVD. Cardiovascular: Normal sinus rhythm, (-) murmur. Lungs: Clear to auscultation bilaterally (-) wheezes, (-) rales, (-) rhonchi. Abdomen: Soft, non-tender, non-distended, (-) organomegaly, normal bowel sounds. Back: (-) CVA tenderness Extremities: No edema. Skin: Warm, dry, (-) rash. Neuro: Alert and oriented x3, no focal deficits. Psychiatric: Mood normal, sleepy Triage Information Reviewed: Yes Vital Signs On Initial Exam: Initial Vitals Temp Pulse Resp BP Pulse Ox 98.1 F 86 18 85/67 99 02/21/19 19:00 02/21/19 19:00 02/21/19 19:00 02/21/19 19:00 02/21/19 19:00 Vital Signs Reviewed: Yes Diagnostics - Vital Signs Vital Signs Temp Pulse Resp BP Pulse Ox 02/21/19 19:00 98.1 F 86 18 85/67 99 - Laboratory Result Diagrams: 02/21/19 19:58 02/21/19 19:58 Lab Statement: Any lab studies that have been ordered have been reviewed, and results considered in the medical decision making process. - EKG 2004 Cardiac Rate: NL - 84 BPM EKG Rhythm: Sinus Rhythm ST Segment: Normal Ectopy: None Summary of EKG Findings: EKG at 2004 reveals normal sinus rhythm with rate of 84 BPM, no acute changes, no ischemic changes. This EKG was reviewed and interpreted by Dr. Holman. Course/Dx - Course Course Of Treatment: This pt is a 43 Y/O M presenting to [facility] with a CC of manic and suicidal thoughts that occurred OPTICAL ADVISOR today. He states that he has Schizophrenia and was discharged from [facility] today. His PE found that he was sleepy. He had abnormal lab values in his serum alcohol which was 86. He will be placed on hold until his serum alcohol level return to an acceptable level. He will be signed out to Dr. Lopez from Dr. Holman at shift change 0700 02/22 pending a mental health unit evaluation and disposistion. He had a serum alcohol level of 82. - Differential Dx/Clinical Impression Provider Diagnosis: Schizophrenia Discharge ED - Sign-Out/Discharge Documenting (check all that apply): Sign-Out Patient Signing out patient TO: Britta Lopez - Discharge Plan Referrals: No Primary Care Phys,NOPCP [Primary Care Provider] - - Attestation Statements Document Initiated by [place]: Yes Documenting Scribe: Tico Bonilla Provider For Whom Scribe is Documenting (Include Credential): Kristel Holman MD Scribe Attestation: Tico Morris, scribed for Kristel Holman MD on 02/22/19 at 0630. Scribe Documentation Reviewed: Yes Provider Attestation: The documentation as recorded by the Tico viera accurately reflects the service I personally performed and the decisions made by me, Kristel Homlan MD Status of Scribe Document: Viewed
[2019-02-21 20:15] LABS: Urine Appearance Clear; Urine Bilirubin Negative (Negative); Urine Blood Negative (Negative); Urine Color Straw; Urine Glucose Negative (Negative); Urine Ketones Negative (Negative); Urine Nitrite Negative (Negative); Urine Protein Negative (Negative); Urine Specific Gravity 1.009 (1.010-1.030); Urine Urobilinogen Negative (Negative)
[2019-02-21 20:25] LABS: Urine Benzodiazepine Screen None Detected (None Detect); Urine Opiates Screen None Detected (None Detect)
[2019-02-21 20:25] LABS: ALT 24 U/L (7-52); AST 25 U/L (13-39); Albumin 4.1 g/dL (3.2-5.2); Albumin/Globulin Ratio 1.9 (1-3); Alkaline Phosphatase 57 U/L (34-104); Anion Gap 5 mmol/L (2-11); BUN/Creatinine Ratio 15.9 (8-20); Blood Urea Nitrogen 13 mg/dL (6-24); CO2 Carbon Dioxide 29 mmol/L (22-32); Calcium 8.9 mg/dL (8.6-10.3); Chloride 106 mmol/L (101-111); EGFR African American 124.7 (>60); Globulin 2.2 g/dL (2-4); Glucose 102 mg/dL (70-100); Sodium 140 mmol/L (135-145); Total Protein 6.3 g/dL (6.4-8.9)
[2019-02-21 20:55] LABS: Acetaminophen < 15 mcg/mL; Alcohol 81 mg/dL (<10); Salicylate < 2.50 mg/dL (<30)
[2019-02-22 14:00] VITALS: BP 120/91
== END 2019-02-22 13:54 | disposition home or self-care (01) ==
LOC: ED 18:47
DX: F20.9 Schizophrenia, unspecified (principal); F17.210 Nicotine dependence, cigarettes, uncomplicated
CPT/HCPCS: 36415; 80053; 80307; 80320; 80329; 81003; 84443; 85025; 93005; 99284; G0480

== ENCOUNTER 2019-02-22 18:23 | Emergency (ER) | payer SELFPAY ==
--- NOTE | 2019-02-22 18:53 | ED ---
Psychiatric Complaint - HPI Summary HPI Summary: 43 year old M brought in by law enforcement from [employer] to [facility] complains of suicidal ideation since today 02/22/19. Symptoms aggravated by nothing. Symptoms alleviated by nothing. Patient was discharged today 02/22/19 AM from [facility] to [facility]. Per police, patient was found sitting outside [employer] today 02/22/19 PM. Per police, patient stated to police that he has schizophrenia and voiced suicidal ideation to police. Patient states he does not trust himself to be alone because he states he would commit suicide. Patient states that he tried to run into traffic today in attempts to commit suicide. - History Of Current Complaint Chief Complaint: EDSuicidal Time Seen by Provider: 02/22/19 18:36 Hx Obtained From: Patient Onset/Duration: Lasting Hours, Still Present Timing: Constant Aggravating Factor(s): Nothing Alleviating Factor(s): Nothing - Allergies/Home Medications Allergies/Adverse Reactions: Allergies Allergy/AdvReac Type Severity Reaction Status Date / Time No Known Allergies Allergy Verified 02/22/19 18:30 PMH/Surg Hx/FS Hx/Imm Hx Endocrine/Hematology History: Denies: Hx Diabetes Respiratory History: Denies: Hx Asthma Sensory History: Denies: Hx Contacts or Glasses, Hx Legally Blind, Hx Deafness, Hx Hearing Aid Opthamlomology History: Denies: Hx Contacts or Glasses, Hx Legally Blind Psychiatric History: Reports: Hx Schizophrenia Denies: Hx Eating Disorder, Hx of Violent Episodes Against Others - Surgical History Surgery Procedure, Year, and Place: none Infectious Disease History: No Infectious Disease History: Denies: Traveled Outside the [place] in Last 30 Days - Family History Known Family History: Positive: Other - no FMHx of schizophrenia - Social History Alcohol Use: Occasionally Hx Substance Use: No Substance Use Type: Reports: None Hx Tobacco Use: Yes Smoking Status (MU): Light Every Day Tobacco Smoker Amount Used/How Often: 2 cigs per day Review of Systems Negative: Fever Positive: Other - suicidal ideation All Other Systems Reviewed And Are Negative: Yes Physical Exam - Summary Physical Exam Summary: Appearance: The patient is well-nourished in no acute distress and in no acute pain. Skin: The skin is warm and dry, and skin color reflects adequate perfusion. HEENT: The head is normocephalic and atraumatic. The pupils are equal and reactive. The conjunctivae are clear and without drainage. Nares are patent and without drainage. Mouth reveals moist mucous membranes, and the throat is without erythema and exudate. The external ears are intact. The ear canals are patent and without drainage. The tympanic membranes are intact. Neck: The neck is supple with full range of motion and non-tender. There are no carotid bruits. There is no neck vein distension. Respiratory: Chest is non-tender. Lungs are clear to auscultation and breath sounds are symmetrical and equal. Cardiovascular: Heart is regular rate and rhythm. There is no murmur or rub auscultated. There is no peripheral edema and pulses are symmetrical and equal. Abdomen: The abdomen is soft and non-tender. There are normal bowel sounds heard in all four quadrants and there is no organomegaly palpated. Musculoskeletal: There is no back tenderness noted. Extremities are non-tender with full range of motion. There is good capillary refill. There is no peripheral edema or calf tenderness elicited. Neurological: Patient is alert and oriented to person, place and time. The patient has symmetrical motor strength in all four extremities. Cranial nerves are grossly intact. Deep tendon reflexes are symmetrical and equal in all four extremities. Psychiatric: The patient has an appropriate affect and does not exhibit any anxiety or depression Triage Information Reviewed: Yes Vital Signs On Initial Exam: Initial Vitals Temp Pulse Resp BP Pulse Ox 97.7 F 121 18 110/86 96 02/22/19 18:25 02/22/19 18:25 02/22/19 18:25 02/22/19 18:25 02/22/19 18:25 Vital Signs Reviewed: Yes Diagnostics - Vital Signs Vital Signs Temp Pulse Resp BP Pulse Ox 02/22/19 18:25 97.7 F 121 18 110/86 96 - Laboratory Lab Statement: Any lab studies that have been ordered have been reviewed, and results considered in the medical decision making process. Course/Dx - Course Course Of Treatment: Mr. Self presented saying that he was given consult. He said that he tried to run into traffic earlier today. He was moderately intoxicated on arrival and is undergoing mental health eval now that he has sobered up. - Differential Dx/Clinical Impression Provider Diagnosis: Schizophrenia Discharge ED - Sign-Out/Discharge Documenting (check all that apply): Sign-Out Patient Signing out patient TO: Kristel Holman - awaiting medical clearance for MHE Receiving patient FROM: Moi Zapata Patient Received Moderate/Deep Sedation with Procedure: No - Discharge Plan Referrals: No Primary Care Phys,NOPCP [Primary Care Provider] - - Attestation Statements Document Initiated by Ginnaibe: Yes Documenting Scribe: Mary Crum Provider For Whom Ginnaibe is Documenting (Include Credential): Moi Zapata MD Scribe Attestation: I, Mary Crum, scribed for Moi Zapata MD on 02/22/19 at 2145. Scribe Documentation Reviewed: Yes Provider Attestation: The documentation as recorded by the Mary viera accurately reflects the service I personally performed and the decisions made by me, Moi Zapata MD Status of Scribe Document: Viewed
--- NOTE | 2019-02-22 21:55 | ED ---
Progress - Progress Note Progress Note: Pt is a sign out from Dr. Zapata pending MHE. Pt will be a sign out to Dr. Lopez pending MHE and disposition. Course/Dx - Course Course Of Treatment: Mr. Self presented saying that he was given consult. He said that he tried to run into traffic earlier today. He was moderately intoxicated on arrival and is undergoing mental health eval now that he has sobered up. Pt is a sign out from Dr. Zapata pending MHE. Pt will be a sign out to Dr. Lopez pending MHE and disposition. - Diagnoses Provider Diagnoses: Schizophrenia Discharge ED - Sign-Out/Discharge Documenting (check all that apply): Sign-Out Patient, Receiving Sign-Out Signing out patient TO: Britta Lopez Receiving patient FROM: Moi Zapata Patient Received Moderate/Deep Sedation with Procedure: No - Discharge Plan Referrals: No Primary Care Phys,NOPCP [Primary Care Provider] - - Attestation Statements Document Initiated by Scribe: Yes Documenting Scribe: Florentino Burns Provider For Whom Scribe is Documenting (Include Credential): Kristel Holman MD Scribe Attestation: IFlorentino, scribed for Kristel Holman MD on 02/23/19 at 0607. Scribe Documentation Reviewed: Yes Provider Attestation: The documentation as recorded by the Florentino viera accurately reflects the service I personally performed and the decisions made by me, Kristel Holman MD Status of Scribe Document: Viewed
--- NOTE | 2019-02-23 07:12 | ED ---
Progress - Progress Note Progress Note: Pt is a sign out from Dr. Holman pending MHE. Pt will be a sign out to Dr. Lopez pending MHE and disposition at shift change 0700 02/23/19. - Consult/PCP Time Called: 18:23 Course/Dx - Course Course Of Treatment: Pt is a sign out from Dr. Holman pending MHE. Pt will be a sign out to Dr. Lopez pending MHE and disposition at shift change 0700 . - Diagnoses Provider Diagnoses: Stress and adjustment reaction - Provider Notifications Discussed Care Of Patient With: Marzena Pillai Time Discussed With Above Provider: 14:14 Instructed by Provider To: Other - discharge Discharge ED - Sign-Out/Discharge Documenting (check all that apply): Patient Departure - discharge Patient Received Moderate/Deep Sedation with Procedure: No - Discharge Plan Condition: Stable Disposition: HOME Patient Education Materials: Stress (ED), Mood Disorders (ED) Referrals: No Primary Care Phys,NOPCP [Primary Care Provider] - - Billing Disposition and Condition Condition: STABLE Disposition: Home - Attestation Statements Document Initiated by Scribe: Yes Documenting Scribe: Tico Wen Provider For Whom Scribe is Documenting (Include Credential): Britta Lopez MD Scribe Attestation: ITico, scribed for Britta Lopez MD on 02/23/19 at 1426. Scribe Documentation Reviewed: Yes Provider Attestation: The documentation as recorded by the Tico viera accurately reflects the service I personally performed and the decisions made by Britta galo MD Status of Scribe Document: Viewed
--- NOTE | 2019-02-23 14:28 | PN ---
Progress Note - Progress Note Date of Service: 02/23/19 Note: Patient seen and case discussed with the mental health workforce specialist. It appears to be a social service issue due to unemployment, lack of primary and secondary support systems and homelessness. At this time he denies any psychiatric problems including mood, thoughts or perceptual disturbances. Yesterday he thought people could read his mind which is not there anymore today. He denies SI or HI. He is alert and oriented to time , place and person. Insight and judgment fair. Plan is to discharge him and he will seek help from Social Service on Sun.
[2019-02-23 14:39] VITALS: BP 115/78
== END 2019-02-23 14:20 | disposition home or self-care (01) ==
LOC: ED 18:23
DX: F43.20 Adjustment disorder, unspecified (principal); F43.9 Reaction to severe stress, unspecified; F20.9 Schizophrenia, unspecified; F17.210 Nicotine dependence, cigarettes, uncomplicated
CPT/HCPCS: 36415; 80320; 99285; G0480